=== PATIENT | female | born 1955 | race Caucasian/White ===

== ENCOUNTER 2017-08-23 18:46 | Observation (INO) | payer BC ==
[2017-08-23] VITALS (7 sets, daily range): BP systolic 117–127; BP diastolic 59–80
[~2017-08-23] VITALS: Ht 162.6 cm; Wt 77.1 kg
[2017-08-23] MEDS ORDERED: morphine INJ 10 MG/ML 1ML (SYR OR VIAL) IVP PRN (22:15)
[2017-08-23] MEDS: NS IV 1000 ML 1,000 ML IV SCH (22:29)
[2017-08-24] VITALS (24 sets, daily range): BP systolic 37–149; BP diastolic 50–73
[2017-08-24] MEDS: NITROGLYCERIN 2% OINT 1 GM UNIT DOSE PACKET TOP SCH ×3 (00:18→12:32)
[2017-08-24 04:48] LABS: BASOPHILS % (AUTO) 0 % (0-10); EOSINOPHILS # (AUTO) 0.2 10^3/uL (0.0-0.3); EOSINOPHILS % (AUTO) 2 % (0-10); HEMATOCRIT 34 % (35-52); LYMPHOCYTES # (AUTO) 4.2 X 10^3 (1.0-4.0); LYMPHOCYTES % (AUTO) 43 % (12-44); MEAN CORPUSCULAR HEMOGLOBIN 32 PG (25-34); MEAN CORPUSCULAR HGB CONC 35 G/DL (32-36); MEAN CORPUSCULAR VOLUME 91 FL (80-99); MEAN PLATELET VOLUME 9.6 FL (7.4-10.4); MONOCYTES # (AUTO) 0.6 X 10^3 (0.0-1.0); MONOCYTES % (AUTO) 6 % (0-12); NEUTROPHILS % (AUTO) 50 % (42-75); PLATELET COUNT 233 10^3/uL (130-400); RED BLOOD COUNT 3.73 10^6/uL (4.35-5.85); RED CELL DISTRIBUTION WIDTH 12.1 % (10.0-14.5); WHITE BLOOD COUNT 9.9 10^3/uL (4.3-11.0)
[2017-08-24 05:17] LABS: BUN/CREATININE RATIO 16; CALCIUM 8.3 MG/DL (8.5-10.1); CARBON DIOXIDE 20 MMOL/L (21-32); CHLORIDE 108 MMOL/L (98-107); CHOLESTEROL 107 MG/DL (< 200); CREATININE SERUM 0.82 MG/DL (0.60-1.30); GFR ESTIMATED > 60; GLUCOSE 174 MG/DL (70-105); HDL CHOLESTEROL 30 MG/DL (40-60); SODIUM 140 MMOL/L (135-145); TRIGLYCERIDES 345 MG/DL (<150); VLDL CHOLESTEROL 69 MG/DL (5-40)
[2017-08-24 05:28] LABS: CARDIAC PROFILE 2 < 0.30 NG/ML (<0.30)
[2017-08-24] MEDS ORDERED: INFLUENZA TRIvalent 2017-2018 0.5 ML/45 MCG SYR IM ONE (07:30)
[2017-08-24] MEDS: NS IV 1000 ML 1,000 ML IV SCH (07:48)
[2017-08-24] MEDS ORDERED: ASPIRIN E.C. 325 MG (ECOTRIN) TABLET PO SCH (09:00)
--- NOTE | 2017-08-24 10:37 | History & Physical-Hospitalist ---
HPI History of Present Illness: HPI/Chief Complaint this is a 61-year-old white female who was up in [place] and she began having chest pressure and left arm numbness. SHe has some associated nausea but no diaphoresis and she had a little shortness of breath. SHe presented to the emergency room with similar complaints. at the time of my interview this morning she complains of a headache from the nitroglycerin patch but denies having any chest pain. Her serial troponins have been negative. She was scheduled for heart catheter at [facility] tomorrow. She is happy staying her here for further evaluation. She denies tobaccoism. She recently has developed some hypertension but does not have hyperlipidemia and diabetes that she knows of or any other heart problems. Her father did have heart disease in his 60s. Source: patient Exam Limitations: no limitations Date Seen 08/24/17 Time Seen by Provider: 09:00 Attending Physician Irasema PCP Referring Physician Date of Admission Aug 23, 2017 at 21:15 Home Medications & Allergies Home Medications Reviewed patient Home Medication Reconciliation Form Allergies Allergies Coded Allergies erythromycin base (Verified Allergy, Severe, RASH, 08/23/17) Past Oiessng-Dkfecv-Iyoges Hx Patient Social History Marrital Status: Employed/Student: unemployed Alcohol Use: Denies Use Recreational Drug Use: No Smoking Status: Never a Smoker Physical Abuse Screen: No Sexual Abuse: No Recent Foreign Travel: No Contact w/other who traveled: No Recent Hopitalizations: No Recent Infectious Disease Expo: No Immunizations Up To Date Pediatric: No Seasonal Allergies Seasonal Allergies: No Surgeries Yes Appendectomy, Gallbladder, Hysterectomy Respiratory Yes Currently Using CPAP: No (Has one at home but is not using) Currently Using BIPAP: No Cardiovascular Yes Hypertension Neurological No Reproductive System : No HIV/AIDS: No Female Reproductive Disorders: Endometriosis Genitourinary No Gastrointestinal Yes Gastroesophageal Reflux Musculoskeletal No Endocrine History of Endocrine Disorders: No HEENT History of HEENT Disorders: Yes HEENT Disorders: Cataract Loss of Vision: Denies Hearing Impairment: Denies Cancer No Psychosocial History of Psychiatric Problem: Yes Behavioral Health Disorders: Depression Integumentary History of Skin or Integumenta: No (Hx Shingles) Blood Transfusions History of Blood Disorders: No Adverse Reaction to a Blood Tr: No Family Medical History Significant Family History: CAD Over 55 Years Old Family Hx: Alzheimer's disease 19 MOTHER, , Onset:60 years & older Arthritis G8 BROTHER, Onset:40's - 50 Asthma G8 BROTHER, Onset:Unknown Colon cancer 19 MOTHER, , Onset:60 years & older Congenital heart disease Degenerative disc disease G8 BROTHER, Onset:40's - 50 Dementia 19 MOTHER, , Onset:60 years & older Diabetes mellitus 19 FATHER, , Onset:60 years & older FH: heart disease 19 FATHER, , Onset:60 years & older FHx: spinal stenosis G8 BROTHER, Onset:40's - 50 Review of Systems Constitutional: see HPI Respiratory: short of breath Cardiovascular: chest pain Musculoskeletal: muscle pain (left arm) Skin: no symptoms reported Psychiatric/Neurological: Anxiety, Depressed Physical Exam Physical Exam Vital Signs Vital Sign - Last 12Hours 08/23/17 08/24/17 08/24/17 21:15 00:00 04:32 Temp 99.3 Pulse 84 Resp 20 B/P (MAP) 125/75 (92) Pulse Ox 95 O2 Delivery Room Air O2 Flow Rate 2.00 Capillary Refill : General Appearance: No Apparent Distress HEENT: Normal ENT Inspection Neck: Limited Range of Motion Respiratory: Normal Breath Sounds, No Accessory Muscle Use, No Respiratory Distress Cardiovascular: Regular Rate, Rhythm, No Gallop, No Murmur Gastrointestinal: Normal Bowel Sounds, No Organomegaly, Non Tender, Soft Rectal: Deferred Extremity: Non Tender, No Calf Tenderness, Other ( pill-rolling tremor right hand) Neurologic/Psychiatric: Alert, Oriented x3, No Motor/Sensory Deficits, Other ( slight dysarthria) Skin: Normal Color, Warm/Dry Results Results/Procedures Lab Laboratory Tests 08/24/17 04:13 Assessment/Plan Admission Diagnosis chest pain with nonspecific ST segment changes on EKG, troponin negative with risk factors of hypertension and probable diabetes History of depression with evidence of tardive Hyperglycemia with no previous history of diabetes-we'll check an A1c Obesity cardiology consult Clinical Quality Measures DVT/VTE Risk/Contraindication: Risk Factor Score Per Nursin RFS Level Per Nursing on Admit: 2=Moderate MENA HE MD Aug 24, 2017 10:37
--- NOTE | 2017-08-24 12:57 | Consultation-Cardiology ---
HPI-Cardiology Cardiology Consultation: Date of Consultation 08/24/17 Time Seen by Provider: 11:20 Date of Admission Attending Physician Suzanne Forte MD Admitting Physician Consulting Physician TREY SCHULTZ MD, MA, FACP, FACC, FSCAI, CCDS HPI: Chief Complaint: CC: Chest discomfort HPI: 61 yo woman with chest discomfort for several days: lower midsternal, lasting only a few seconds, sometimes frequently repetitive, present for the last several day, sometimes worse with exertion, sometimes associated with radiation got the L arm (numbness), mild to mod, not associated with other symptoms. For this, she had gone to [place], [place] and was then sent to this [facility] for adm to the Hospitalist [facility]. Feels well at the time of my exam. Notes chronic exertional shortness of breath, moderate. Denies palp or syncope or leg swelling Review of Systems-Cardiology Review of Systems Constitutional: malaise, No weight loss, No weight gain Eyes: No vision change Ears/Nose/Throat: No ear discharge, No nasal drainage, No recent hearing loss Respiratory: As described under HPI Cardiovascular: As described under HPI Gastrointestinal: No diarrhea, No nausea, No vomiting Genitourinary: No dysuria, No hematuria Musculoskeletal: No back pain, No joint pain Skin: No rash, No ulcerations Psychiatric/Neurological: No seizure, No focal weakness, No syncope Hematologic: No bleeding abnormalities JOX-Sfuolh-Ryofam Hx Patient Social History Marrital Status: Employed/Student: unemployed Alcohol Use: Denies Use Recreational Drug Use: No Smoking Status: Never a Smoker Recent Foreign Travel: No Recent Infectious Disease Expo: No Hospitalization with Isolation: Denies Physical Abuse Screen: No Sexual Abuse: No Past Medical History PMH As described under Assessment. Family Medical History Family History: Alzheimer's disease 19 MOTHER, , Onset:60 years & older Arthritis G8 BROTHER, Onset:40's - 50 Asthma G8 BROTHER, Onset:Unknown Colon cancer 19 MOTHER, , Onset:60 years & older Congenital heart disease Degenerative disc disease G8 BROTHER, Onset:40's - 50 Dementia 19 MOTHER, , Onset:60 years & older Diabetes mellitus 19 FATHER, , Onset:60 years & older FH: heart disease 19 FATHER, , Onset:60 years & older FHx: spinal stenosis G8 BROTHER, Onset:40's - 50 Allergies and Home Medications Allergies Coded Allergies: erythromycin base (Verified Allergy, Severe, RASH, 08/23/17) Physical Exam-Cardiology Physical Exam Vital Signs/I&O Vital Sign - Last 12Hours 08/24/17 08/24/17 08/24/17 08/24/17 01:00 01:00 02:00 03:00 Pulse 80 80 80 80 Resp 15 18 23 B/P (MAP) 103/63 (76) 114/58 (76) 113/59 (77) Pulse Ox 95 93 95 O2 Delivery Room Air Room Air Room Air 08/24/17 08/24/17 08/24/17 08/24/17 03:55 04:00 04:32 05:00 Temp 97.2 Pulse 67 71 66 Resp 15 17 15 B/P (MAP) 93/50 (64) 104/50 (68) Pulse Ox 93 93 95 95 O2 Delivery Room Air Room Air Nasal Cannula Nasal Cannula O2 Flow Rate 2.00 2.00 08/24/17 08/24/17 08/24/17 08/24/17 06:00 07:00 07:00 07:39 Temp 97.4 Pulse 87 59 59 Resp 12 12 B/P (MAP) 108/52 (70) 104/51 (68) Pulse Ox 96 98 O2 Delivery Nasal Cannula Nasal Cannula Nasal Cannula O2 Flow Rate 2.00 2.00 2.00 08/24/17 08/24/17 08/24/17 08/24/17 08:00 08:00 09:20 12:28 Temp 98.4 Pulse 68 Resp 15 B/P (MAP) 129/66 (87) Pulse Ox 95 O2 Delivery Nasal Cannula Nasal Cannula Nasal Cannula Nasal Cannula O2 Flow Rate 2.00 2.00 2.00 2.00 08/24/17 12:29 Pulse Ox 95 O2 Delivery Nasal Cannula O2 Flow Rate 2.00 Intake and Output 08/24/17 00:00 Intake Total 50 ml Output Total 400 ml Balance -350 ml Capillary Refill : Constitutional: AAO x 3, well-developed, well-nourished HEENT: EOMI, No xanthelasmas are seen Neck: No carotid bruit, carotid pulses are 2 + bilaterally, with good upstrokes Respiratory: No accessory muscle use, lungs clear to percussion, lungs clear to auscultation Cardiovascular: regular rate-rhythm, S1 and S2, systolic murmur (faint ANT at card base) Gastrointestinal: tender (mild gen tenderness), soft, No guarding, No rebound, audible bowel sounds Extremities: No clubbing, No cyanosis, No significant edema Neurologic/Psychiatric: oriented x 3, grossly intact, power is 5/5 both on sides Skin: No rash on exposed areas, No ulcerations on exposed areas Data Review Labs Laboratory Tests 08/23/17 21:46: Troponin I < 0.30 08/24/17 04:13: Troponin I < 0.30, White Blood Count 9.9, Red Blood Count 3.73L, Hemoglobin 12.0 , Hematocrit 34L, Mean Corpuscular Volume 91, Mean Corpuscular Hemoglobin 32, Mean Corpuscular Hemoglobin Concent 35, Red Cell Distribution Width 12.1, Platelet Count 233, Mean Platelet Volume 9.6, Neutrophils (%) (Auto) 50, Lymphocytes (%) (Auto) 43, Monocytes (%) (Auto) 6, Eosinophils (%) (Auto) 2, Basophils (%) (Auto) 0, Neutrophils # (Auto) 5.0, Lymphocytes # (Auto) 4.2H, Monocytes # (Auto) 0.6, Eosinophils # (Auto) 0.2, Basophils # (Auto) 0.0, Sodium Level 140, Potassium Level 4.0, Chloride Level 108H, Carbon Dioxide Level 20L, Anion Gap 12, Blood Urea Nitrogen 13, Creatinine 0.82, Estimat Glomerular Filtration Rate > 60, BUN/Creatinine Ratio 16, Glucose Level 174H, Calcium Level 8.3L, Triglycerides Level 345H, Cholesterol Level 107, LDL Cholesterol Direct 31, VLDL Cholesterol 69H, HDL Cholesterol 30L Laboratory Tests 08/24/17 04:13 A/P-Cardiology Assessment/Admission Diagnosis Chest discomfort of undetermined etiology, no evidence of ACS Hypertension, borderline, by history Hyperlipidemia Overweight (BMI approx 29) Impaired fasting glucose or borderline DM II H/o depression, controlled, according to patient and family Echo of 08/05/17: LVEF 60-65%, mild AI Discussion and Recomendations * Chest discomfort, by description, is either atypical or nonanginal. This is in the setting of multiple cor risk factors. We recommend MPI for cor eval * We discussed risk factor mod and further recs will be based on hosp course * We recommend continuation of aspirin, discontinuation of topical nitrates, and addition of beta-ileana and of statin * We recommend eval and, if needed, treatment of DM * I discussed her CV issues and our management plan with her and her fam and answered questions Clinical Quality Measures DVT/VTE Risk/Contraindication: Risk Factor Score Per Nursin RFS Level Per Nursing on Admit: 2=Moderate TREY SCHULTZ MD FACP FAC CCDS Aug 24, 2017 12:57
[2017-08-24] MEDS ORDERED: NFESTCO.45 PO (14:06)
[2017-08-24] MEDS ORDERED: CLOR3.755 PO (14:06)
[2017-08-24] MEDS ORDERED: OLAN15TA19 PO (14:06)
[2017-08-24] MEDS ORDERED: ATOR40TA70 PO (14:06)
[2017-08-24] MEDS ORDERED: TRIH2TAB2 PO (14:06)
[2017-08-24] MEDS ORDERED: CNC1KV INJ (14:06)
[2017-08-24] MEDS ORDERED: LISI-552 PO (14:06)
[2017-08-24] MEDS ORDERED: CALC300T4 PO (15:37)
[2017-08-24] MEDS ORDERED: MULT-141 PO (15:37)
[2017-08-24] MEDS ORDERED: ATORVASTATIN 20 MG (LIPITOR) TABLET PO SCH (21:00)
[2017-08-25] VITALS (7 sets, daily range): BP systolic 108–150; BP diastolic 49–87
[2017-08-25 05:05] LABS: BASOPHILS % (AUTO) 0 % (0-10); EOSINOPHILS # (AUTO) 0.2 10^3/uL (0.0-0.3); EOSINOPHILS % (AUTO) 2 % (0-10); HEMATOCRIT 37 % (35-52); HEMOGLOBIN 13.1 G/DL (11.5-16.0); LYMPHOCYTES # (AUTO) 3.9 X 10^3 (1.0-4.0); LYMPHOCYTES % (AUTO) 38 % (12-44); MEAN CORPUSCULAR HEMOGLOBIN 32 PG (25-34); MEAN CORPUSCULAR HGB CONC 36 G/DL (32-36); MEAN CORPUSCULAR VOLUME 90 FL (80-99); MEAN PLATELET VOLUME 9.8 FL (7.4-10.4); MONOCYTES # (AUTO) 0.7 X 10^3 (0.0-1.0); MONOCYTES % (AUTO) 6 % (0-12); NEUTROPHILS # (AUTO) 5.4 X 10^3 (1.8-7.8); NEUTROPHILS % (AUTO) 53 % (42-75); PLATELET COUNT 233 10^3/uL (130-400); RED BLOOD COUNT 4.06 10^6/uL (4.35-5.85); RED CELL DISTRIBUTION WIDTH 11.7 % (10.0-14.5); WHITE BLOOD COUNT 10.2 10^3/uL (4.3-11.0)
[2017-08-25 05:28] LABS: ALANINE AMINOTRANSFERASE 24 U/L (0-55); ALBUMIN 3.5 GM/DL (3.2-4.5); ALKALINE PHOSPHATASE 117 U/L (40-136); BILIRUBIN,TOTAL 0.5 MG/DL (0.1-1.0); BUN/CREATININE RATIO 14; CALCIUM 8.7 MG/DL (8.5-10.1); CARBON DIOXIDE 22 MMOL/L (21-32); CHLORIDE 108 MMOL/L (98-107); CREATININE SERUM 0.77 MG/DL (0.60-1.30); GFR ESTIMATED > 60; GLUCOSE 157 MG/DL (70-105); MAGNESIUM 2.3 MG/DL (1.8-2.4); POTASSIUM 4.3 MMOL/L (3.6-5.0); SODIUM 142 MMOL/L (135-145); TOTAL PROTEIN 6.3 GM/DL (6.4-8.2)
[2017-08-25] MEDS ORDERED: CATHETER FLUSH 10 ML SYR IV PRN (07:15)
[2017-08-25] MEDS ORDERED: REGADENOSON 0.4 MG/5 ML SYR (LEXISCAN) IV ONE ×2 (08:08→13:45)
--- NOTE | 2017-08-25 09:09 | Progress Note-Cardiology ---
Cardiology SOAP Progress Note Subjective: MPI this morning. No c/o CP, palpitations or dyspnea. Objective: I&O/Vital Signs Vital Sign - Last 12Hours 08/24/17 08/25/17 08/25/17 08/25/17 23:00 00:00 00:00 01:00 Temp 98.7 Pulse 64 71 70 Resp 16 13 18 B/P (MAP) 98/51 (67) 119/60 (79) 137/71 (93) Pulse Ox 94 95 91 O2 Delivery Room Air Room Air Room Air Room Air O2 Flow Rate 2.00 08/25/17 08/25/17 08/25/17 08/25/17 01:00 02:00 02:50 03:00 Pulse 70 72 64 62 Resp 14 15 18 B/P (MAP) 150/87 (108) 111/57 (75) Pulse Ox 92 95 94 O2 Delivery Room Air Nasal Cannula Nasal Cannula O2 Flow Rate 2.00 2.00 08/25/17 08/25/17 08/25/17 04:00 04:00 08:04 Pulse 57 Resp 18 B/P (MAP) 108/49 (68) Pulse Ox 96 O2 Delivery Nasal Cannula Nasal Cannula Nasal Cannula O2 Flow Rate 2.00 2.00 2.00 Intake and Output 08/25/17 00:00 Intake Total 1540 ml Output Total 2450 ml Balance -910 ml Weight (Pounds): 170 Weight (Ounces): 0.0 Weight (Calculated Kilograms): [id number] Constitutional: AAO x 3, well-developed, well-nourished Respiratory: No accessory muscle use, lungs clear to percussion, lungs clear to auscultation Cardiovascular: regular rate-rhythm, S1 and S2, systolic murmur (faint ANT at card base) Gastrointestional: tender (mild gen tenderness), soft, No guarding, No rebound , audible bowel sounds Extremities: No clubbing, No cyanosis, No significant edema Neurologic/Psychiatric: oriented x 3, grossly intact, power is 5/5 both on sides Skin: No rash on exposed areas, No ulcerations on exposed areas Results/Procedures: Labs Laboratory Tests 08/25/17 04:10: White Blood Count 10.2, Red Blood Count 4.06L, Hemoglobin 13.1, Hematocrit 37, Mean Corpuscular Volume 90, Mean Corpuscular Hemoglobin 32, Mean Corpuscular Hemoglobin Concent 36, Red Cell Distribution Width 11.7, Platelet Count 233, Mean Platelet Volume 9.8, Neutrophils (%) (Auto) 53, Lymphocytes (%) (Auto) 38, Monocytes (%) (Auto) 6, Eosinophils (%) (Auto) 2, Basophils (%) (Auto) 0, Neutrophils # (Auto) 5.4, Lymphocytes # (Auto) 3.9, Monocytes # (Auto) 0.7, Eosinophils # (Auto) 0.2, Basophils # (Auto) 0.0, Sodium Level 142, Potassium Level 4.3, Chloride Level 108H, Carbon Dioxide Level 22, Anion Gap 12, Blood Urea Nitrogen 11, Creatinine 0.77, Estimat Glomerular Filtration Rate > 60, BUN/ Creatinine Ratio 14, Glucose Level 157H, Calcium Level 8.7, Magnesium Level 2.3 , Total Bilirubin 0.5, Aspartate Amino Transf (AST/SGOT) 23, Alanine Aminotransferase (ALT/SGPT) 24, Alkaline Phosphatase 117, Total Protein 6.3L, Albumin 3.5, Thyroid Stimulating Hormone (TSH) 2.21 Laboratory Tests 08/24/17 04:13 08/25/17 04:10 A/P: Assessment: Chest discomfort of undetermined etiology, no evidence of ACS Echo of 08/24/17: LVEF 60-65%, mild AI MPI on 08/25/17: No evidence of any significant myocardial ischemia or infarction ; LVEF 80% Hypertension, borderline, by history Hyperlipidemia Overweight (BMI approx 29) DM II H/o depression, controlled, according to patient and family Non-specific ECG abnormalities, probably related to meds (including meds for psychologic diathesis) Plan: * Chest discomfort, by description, is either atypical or nonanginal. This is in the setting of multiple cor risk factors. * MPI this morning - results pending * We discussed risk factor mod * We recommend continuation of aspirin, discontinuation of topical nitrates, and addition of beta-ileana and of statin * We recommend eval and, if needed, treatment of DM * Dr. Rico has discussed her CV issues and our management plan with her and her fam and answered questions Physician Assessment Physician Assessment Feels well and wishes to go home. No cp or palp or syncope or shortness of breath or swelling Lungs: clear Cor: reg Ext: no c/c/e Echo and MPI: see above A&R * As documented in our note above that I updated (italics) and as noted below * No evidence of ACS, but has multiple risk factors. We recommend continuing treatment with statin. We have add beta-ileana and aspirin. We have stopped lisinopril to allow more room on bp for beta-ileana * We discussed risk factor modification at length * We have advised eval and treatment for DM II * We have advised efforts at wgt loss and discussed other risk factor modification * We had a detailed discussion with her and her and answered CV-related questions EMILIO KOCH Aug 25, 2017 09:09 TREY RICO MD FACP FAC CCDS Aug 25, 2017 10:12
[2017-08-25] MEDS ORDERED: ASPIRIN 81 MG CHEW (CHILDREN'S ASA) PO SCH (09:17)
[2017-08-25] MEDS ORDERED: METO-387 PO (10:01)
[2017-08-25] MEDS ORDERED: ASPI-999 PO (10:01)
--- NOTE | 2017-08-25 10:02 | Discharge Inst-Cardiology ---
Discharge Inst-Cardiac Discharge Medications New Medications: Aspirin (Aspirin) 81 Mg Tab.chew 81 MG PO DAILY@0900 for 90 Days, #90 TAB 3 Refills Metoprolol Succinate (Metoprolol Succinate) 25 Mg Tab.er.24h 25 MG PO DAILY for 90 Days, #90 TAB 3 Refills Continued Medications: Atorvastatin Calcium (Atorvastatin Calcium) 40 Mg Tablet 40 MG PO HS Calcium Carbonate (Tums) 300 Mg Tab.chew 300 MG PO PRN PRN for HEARTBURN, TAB Clorazepate Dipotassium (Clorazepate Dipotassium) 3.75 Mg Tablet 3.75 MG PO TID Estrogens Conjugated (Premarin) 0.45 Mg Tab 0.45 MG PO DAILY Multivit with Calcium,Iron,Min (Women's Daily Formula) 1 Each Tablet 1 TAB PO DAILY, TAB Olanzapine (Olanzapine) 15 Mg Tablet 15 MG PO HS Trihexyphenidyl HCl (Trihexyphenidyl HCl) 2 Mg Tablet 2 MG PO TID Discontinued Medications: Lisinopril (Lisinopril) 20 Mg Tablet 20 MG PO DAILY Patient Instructions Patient Instructions: F/u with Dr Rico in 3-4 weeks Activity & Diet Discharge Diet: ADA Diet (1500 kCal) TREY RICO MD FACP FAC CCDS Aug 25, 2017 10:02
[2017-08-25] MEDS ORDERED: METF-478 PO (10:21)
--- NOTE | 2017-08-25 10:21 | STRESS TEST ---
DATE OF SERVICE: 08/25/2017 PROCEDURE: Resting and post regadenoson technetium-99m Tetrofosmin SPECT CT imaging. CLINICAL DIAGNOSIS: Chest discomfort. ORDERING PHYSICIAN: Dr. Rico. PRIMARY PHYSICIAN: Dr. Forte. DESCRIPTION: Baseline images were carried out after injection of 10.9 mCi of technetium-99m Tetrofosmin. This was followed by 0.4 mg regadenoson and 30.1 mCi of technetium-99m Tetrofosmin for stress imaging. The electrocardiogram showed sinus rhythm at baseline. There was nonspecific ST and T-wave abnormality, which did not change significantly with the regadenoson infusion. She describes mild shortness of breath and abdominal cramping with the regadenoson infusion, which resolved in a few minutes. Review of images at rest and following stress does not show any distinct perfusion defects consistent with significant myocardial ischemia or infarction. Study is technically somewhat difficult because of considerable gut activity during image acquisition. Gated images show normal global left ventricular systolic function with normal regional wall motion. Left ventricular ejection fraction is calculated to be 80%. Left ventricular cavity size appears to be normal. CONCLUSIONS: 1. No evidence of any significant myocardial ischemia or infarction on this study. 2. Normal regional wall motion. 3. Normal to hyperdynamic left ventricular systolic function with a calculated left ventricular ejection fraction of 80%. Job ID: [id number] DocumentID: [id number] Dictated Date: 08/25/2017 09:40:51 Condenser Cleaner Date: 08/25/2017 10:17:13 Dictated By: TREY RICO MD, MA, FACP, FACC,
[2017-08-25] MEDS ORDERED: CATHETER FLUSH 10 ML SYR IV SCH (14:00)
--- NOTE | 2017-08-25 16:51 | Discharge Summary-Hospitalist ---
Diagnosis/Chief Complaint Date of Admission Aug 23, 2017 at 21:15 Date of Discharge Aug 25, 2017 at 11:30 Discharge Date: Aug 25, 2017 Admission Diagnosis chest pain with nonspecific ST segment changes on EKG, troponin negative with risk factors of hypertension and probable diabetes History of depression with evidence of tardive Hyperglycemia with no previous history of diabetes-we'll check an A1c Obesity cardiology consult Discharge Diagnosis Chest Pain Discharge Summary Consultations Dr Rico- Cardiology Discharge Physical Examination Allergies: Coded Allergies: erythromycin base (Verified Allergy, Severe, RASH, 08/23/17) Vitals & I&Os Vital Signs Date Time Temp Pulse Resp B/P (MAP) Pulse Ox O2 Delivery O2 Flow Rate FiO2 08/25/17 11:30 68 16 110/56 98 Room Air 08/25/17 08:04 2.00 08/25/17 08:00 98.6 Hospital Course Pt is a 61yoCF who presented as a transfer from [place] for evaluation of chest pain. She was admitted to cardiac step down and troponins were trended and negative. She underwent pharmacological stress testing which revealed no evidence of significant ischemia or infarction. She was started on metoprolol, ASA, and atorvastatin. She was was found to have elevated blood sugars and her A1c was 7.7 so she was started on Metformin. She is to follow up with Dr. Rico. Labs (last 24 hrs) Discharge Home Medications: Active Scripts Active Metformin HCl ER (Metformin HCl) 500 Mg Tab.er.24 500 Mg PO DAILY Metoprolol Succinate 25 Mg Tab.er.24h 25 Mg PO DAILY 90 Days Aspirin 81 Mg Tab.chew 81 Mg PO DAILY@0900 90 Days Reported Women's Daily Formula (Multivit with Calcium,Iron,Min) 1 Each Tablet 1 Tab PO DAILY Tums (Calcium Carbonate) 300 Mg Tab.chew 300 Mg PO PRN PRN Atorvastatin Calcium 40 Mg Tablet 40 Mg PO HS Clorazepate Dipotassium 3.75 Mg Tablet 3.75 Mg PO TID Olanzapine 15 Mg Tablet 15 Mg PO HS Trihexyphenidyl HCl 2 Mg Tablet 2 Mg PO TID Premarin (Estrogens Conjugated) 0.45 Mg Tab 0.45 Mg PO DAILY Instructions to patient/family Please see electronic discharge instructions given to patient. Clinical Quality Measures DVT/VTE Risk/Contraindication: Risk Factor Score Per Nursin RFS Level Per Nursing on Admit: 2=Moderate Copy Copies To 1: TREY RICO MD FACP FACC CCDS MARCO HOSKINS MD Aug 25, 2017 16:51
[2017-08-26] MEDS ORDERED: ASPIRIN 81 MG CHEW (CHILDREN'S ASA) PO SCH (09:00)
== END 2017-08-25 10:01 | disposition home or self-care (01) ==
LOC: ICU 21:15
PROVIDERS: ADMIT Family Medicine; ATTEND Family Medicine
DX: R07.9 Chest pain, unspecified (principal); R94.31 Abnormal electrocardiogram [ECG] [EKG]; I10 Essential (primary) hypertension; E78.5 Hyperlipidemia, unspecified; E11.9 Type 2 diabetes mellitus without complications; F32.9 Major depressive disorder, single episode, unspecified; E66.3 Overweight; Z68.29 Body mass index [BMI] 29.0-29.9, adult; Z79.899 Other long term (current) drug therapy
CPT/HCPCS: 36415; 78452; 80048; 80053; 80061; 83036; 83735; 84443; 84484; 85025; 93005; 93017; 93306; 99211

== ENCOUNTER 2018-12-15 11:57 | Day surgery (SDC) | payer BC, OTHER ==
[~2018-12-15] VITALS: Ht 162.6 cm; Wt 74.8 kg
[2018-12-15] VITALS (8 sets, daily range): BP systolic 123–150; BP diastolic 63–66
[~2018-12-15 11:57] MED LIST: ASPI-999 PO; ATOR40TA70 PO; CALC300T4 PO; CLOR3.755 PO; CNC1KV INJ; LISI-552 PO; METF-478 PO; METO-387 PO; MULT-141 PO; NFESTCO.45 PO; OLAN15TA19 PO; TRIH2TAB2 PO
[2018-12-15] MEDS ORDERED: NS IV 1000 ML 1,000 ML ONE (11:58)
[2018-12-15] MEDS ORDERED: LIDOCAINE 1% INJ 20 ML 20 ML VIAL ONE (11:58)
[2018-12-15] MEDS ORDERED: HEParin (CATH LAB) 2,000 ML IV ONE (11:58)
[2018-12-15] MEDS ORDERED: NS IV 1000 ML 1,000 ML IV SCH ×2 (12:15→14:07)
[2018-12-15 12:33] LABS: MEAN PLATELET VOLUME 9.3 FL (7.4-10.4); WHITE BLOOD COUNT 7.1 10^3/uL (4.3-11.0)
[2018-12-15] MEDS ORDERED: METO-370 PO (12:35)
[2018-12-15] MEDS ORDERED: AMOX1TAB12 PO (12:35)
[2018-12-15] MEDS ORDERED: METF-397 PO (12:35)
[2018-12-15 12:44] LABS: INR 0.9 (0.8-1.4); PROTHROMBIN TIME PATIENT 12.9 SEC (12.2-14.7)
[2018-12-15 12:51] LABS: ALANINE AMINOTRANSFERASE 31 U/L (0-55); ALBUMIN 4.4 GM/DL (3.2-4.5); ALKALINE PHOSPHATASE 127 U/L (40-136); BILIRUBIN,TOTAL 0.5 MG/DL (0.1-1.0); BUN/CREATININE RATIO 14; CARBON DIOXIDE 23 MMOL/L (21-32); CHLORIDE 107 MMOL/L (98-107); CHOLESTEROL 138 MG/DL (< 200); CREATININE SERUM 0.91 MG/DL (0.60-1.30); GFR ESTIMATED > 60; GLUCOSE 142 MG/DL (70-105); HDL CHOLESTEROL 42 MG/DL (40-60); POTASSIUM 4.8 MMOL/L (3.6-5.0); SODIUM 141 MMOL/L (135-145); TOTAL PROTEIN 7.1 GM/DL (6.4-8.2); TRIGLYCERIDES 221 MG/DL (<150); VLDL CHOLESTEROL 44 MG/DL (5-40)
[2018-12-15] MEDS ORDERED: fentaNYL INJECTION 100 MCG/2 ML AMP ONE (13:07)
[2018-12-15] MEDS ORDERED: MIDAZOLAM 5 MG/5 ML (VERSED) VIAL ONE (13:07)
--- NOTE | 2018-12-15 13:44 | Cardiac Procedure Note-CS/ASA ---
Pre-Procedure Note Pre-Op Procedure Note H&P Reviewed The H&P was reviewed, patient examined and no changes noted. Date H&P Reviewed: December 15, 2018 Time H&P Reviewed: 13:44 Conscious Sedation Pre-Proced Time 13:44 ASA Score 3 For ASA 3 and 4: Consider anesthesia and medical clearance. Also, for patients with a history of failed moderate sedation consider anesthesia. Airway Lungs Heart ASA score ASA 1: a normal healthy patient ASA 2: a patient with a mild systemic disease (mid diabetes, controlled hypertension, obesity ASA 3: a patient with a severe systemic disease that limits activity (angina , COPD, prior Myocardial infarction) ASA 4: a patient with an incapacitating disease that is a constant threat to life (CHF, renal failure) ASA 5: a moribund patient not expected to survive 24 hrs. (ruptured aneurysm) ASA 6: a declared brain- patient whose organs are being harvested. For emergent operations, add the letter E after the classification Mallampati Classification Grade 2 Sedation Plan Analgesia, Amnesia, Plan communicated to team members, Discussed options with patient/fam, Discussed risks with patient/fam The patient is an appropriate candidate to undergo the planned procedure, sedation, and anesthesia. The patient immediately re-assessed prior to indication. TREY SCHULTZ MD FACP FAC CCDS December 15, 2018 13:44
--- NOTE | 2018-12-15 14:11 | Discharge Inst-Post CATH ---
Discharge Inst-CATH/EP Post Cardiac Cath/EP D/C Inst Follow Up/Plan F/u with Dr Rico in 2 weeks ACTIVITY * Go Home directly and rest. * Limit activity of the leg (or wrist if it was used) for 7 days including aerobics, swimming, jogging, bicycling, etc. * Restrict stair-climbing for 7 days if possible, if not, climb up with your non -cath leg, then bring together on the same step. * Avoid lifting, pushing, pulling or excessive movement of the affected extremity for 7 days. * Customary sexual activity may be resumed after 2 days-use caution not to use a position that strains or causes pain to the affected extremity. * No driving for 24 hours. * NO SMOKING. * Avoid straining for bowel movements for 7 days. * Gentle walking on level ground is allowed. * Returning to work will depend on the type of procedure and the results. Your doctor will discuss this with you. CALL YOUR DOCTOR FOR ANY OF THE FOLLOWING: *If bleeding from the puncture site occurs- Apply gentle pressure to site with clean cloth and call your doctor or EMS. * If a knot or lump forms under the skin, increases in size, or causes pain. * If bruising appears to be worsening or moving further down your leg instead of disappearing. * Temperature above 101 F. CARE OF YOUR GROIN INCISION; * Bruising or purple discoloration of the skin near the puncture site is common. * You may shower only, no bathtub bathing for 5 days. Be careful to avoid slipping as your leg may feel stiff. * If a closure device was used on your femoral artery, please see the attached guide regarding care of the device and your leg. * Leave dressing on FOR 24 hours. CARE OF YOUR WRIST INCISION; * Bruising or purple discoloration of the skin near the puncture site is common. * You may shower. * DO NOT submerge wrist. * Leave dressing on FOR 24 hours. TREY RICO MD FACP FAC CCDS December 15, 2018 14:11
--- NOTE | 2018-12-15 14:11 | Discharge Inst-Cardiology ---
Discharge Inst-Cardiac Discharge Medications Continued Medications: Amoxicillin/Potassium Clav (Amox Tr-K Clv 875-125 mg Tab) 1 Each Tablet 1 EACH PO Q12H, TAB TAKES ONE TABLET EVERY 12 HOURS FOR 10 DAYS STARTED 12/03/18 Atorvastatin Calcium (Atorvastatin Calcium) 40 Mg Tablet 40 MG PO HS Calcium Carbonate (Tums) 300 Mg Tab.chew 300 MG PO PRN PRN for HEARTBURN, TAB Clorazepate Dipotassium (Clorazepate Dipotassium) 3.75 Mg Tablet 3.75 MG PO TID Estrogens Conjugated (Premarin) 0.45 Mg Tab 0.45 MG PO DAILY Metoprolol Succinate (Metoprolol Succinate) 50 Mg Tab.er.24h 50 MG PO DAILY, TAB Multivit with Calcium,Iron,Min (Women's Daily Formula) 1 Each Tablet 1 TAB PO DAILY, TAB Olanzapine (Olanzapine) 15 Mg Tablet 15 MG PO HS Discontinued Medications: Metformin HCl (Metformin HCl) 500 Mg Tablet 500 MG PO DAILY, TAB Patient Instructions Patient Instructions: Hold METFORMIN until the morning of 12/18/18; then resume previous home dose Orders-Post D/C & Referrals Pneu Vac Indicated: Yes TREY SCHULTZ MD FACP FACC CCDS December 15, 2018 14:11
[2018-12-15] MEDS ORDERED: PATIENT MAY USE OWN MEDS, ALL PO SCH (14:15)
--- NOTE | 2018-12-15 14:27 | CARDIAC CATHETERIZATION ---
DATE OF SERVICE: 12/15/2018 CARDIAC CATHETERIZATION REPORT INDICATIONS: The patient is a 63-year-old lady with multiple coronary artery disease risk factors who has been experiencing chest discomfort that is midsternal and radiating to the jaw and relieved with nitroglycerin. She has recently had one presentation to the emergency room with that. She feels concerned that it is related to heart artery blockage. Cardiac catheterization was carried out today after having obtained an informed consent. PROCEDURE: She was brought to the cardiac catheterization laboratory in a fasting state. Right groin was prepared and draped in the usual sterile fashion. Lidocaine 1% with local anesthesia. Modified Seldinger technique was used to advance a 5-Niuean sheath in the right femoral artery. A 5-Niuean JL4 catheter was used for left coronary angiography, 5-Niuean JR4 catheter for right coronary angiography. A 5-Niuean pigtail catheter was used for left heart catheterization and left ventricular angiography. The pigtail was then pulled back and removed. Angiography of right femoral artery was carried out through the sheath. Mynx was used to achieve hemostasis. She tolerated the procedure well. HEMODYNAMICS: Left ventricular end-diastolic pressure following coronary angiography was 11 mmHg. There was no significant pressure gradient on pullback across the aortic valve. Ascending aortic pressure was 130/60 with a mean of 78 mmHg. LEFT VENTRICULAR ANGIOGRAPHY: Left ventricular angiography was carried out in the right anterior oblique projection. Global left ventricular systolic function normal. No regional wall motion abnormalities seen. Left ventricular ejection fraction approximately 60%. CORONARY ANGIOGRAPHY: Left main coronary artery is free of significant disease. Left anterior descending artery is free of significant disease. Left anterior descending artery is of a very small caliber following the origin of the distal diagonal branch. The left circumflex artery does not exhibit significant disease. The right coronary artery is dominant and does not exhibit significant disease. CONCLUSIONS: 1. No angiographically significant coronary artery disease. 2. Normal global left ventricular systolic function with ejection fraction 60%. 3. Normal left ventricular end diastolic pressure. DISCUSSION AND RECOMMENDATIONS: Based on results of the study, chest discomfort does not appear to be of cardiac origin. Continue risk factor modification is advised. Outpatient followup is advised. Job ID: [id number] DocumentID: [id number] Dictated Date: 12/15/2018 14:01:03 Lead Esthetician Date: 12/15/2018 14:26:37 Dictated By: TREY SCHULTZ MD, MA, FACP, FACC,
== END 2018-12-15 17:16 | disposition home or self-care (01) ==
LOC: CATH 11:57 → ICU 14:21 → CATH 17:16
PROVIDERS: ATTEND Internal Medicine Cardiovascular Disease
DX: R07.89 Other chest pain (principal); R06.09 Other forms of dyspnea; I10 Essential (primary) hypertension; E11.9 Type 2 diabetes mellitus without complications; E78.5 Hyperlipidemia, unspecified; I73.9 Peripheral vascular disease, unspecified; Z79.84 Long term (current) use of oral hypoglycemic drugs; Z79.899 Other long term (current) drug therapy
CPT/HCPCS: 36415; 80053; 80061; 85027; 85610; 85730; 87081; 93458

== ENCOUNTER → 2018-12-22 | Outpatient (CLI) | payer BC, OTHER ==
[~2018-12-22] MED LIST changes: +AMOX1TAB12 PO; +METF-397 PO; +METO-370 PO
== END ==
LOC: RAD 12:22
PROVIDERS: ATTEND Nurse Practitioner Family
DX: I70.219 Atherosclerosis of native arteries of extremities with intermittent claudication, unspecified extremity (principal); R07.9 Chest pain, unspecified
CPT/HCPCS: 93923